=== PATIENT | female | born 1955 | race Caucasian/White ===

== ENCOUNTER 2020-05-29 10:21 | Emergency (ER) | payer OTHER ==
[~2020-05-29] VITALS: Ht 162.6 cm; Wt 48.1 kg
[~2020-05-29 10:21] MED LIST: FLAGYL500 MG PO; HYDROCODONE-AP1 EAC6 PO; IBUPROFEN 600600 M1 PO; MACROBID 100 M100 M1 PO; MAXALT MLT5 MG PO; MUCINEX600 MG; PERCOCET PO; XANAX 0.25 MG0.25 MG; ZANTAC 150MG T150 M1; ZOLOFT100 MG; ZYRTEC-D TABLE1 EAC1
[2020-05-29] MEDS ORDERED: NORCO 5-325 TA1 EAC2 PO (11:52)
[2020-05-29 12:21] VITALS: BP 186/92
== END 2020-05-29 12:24 | disposition home or self-care (01) ==
LOC: M.ERS 10:21
DX: S92.324A Nondisplaced fracture of second metatarsal bone, right foot, initial encounter for closed fracture (principal); S92.334A Nondisplaced fracture of third metatarsal bone, right foot, initial encounter for closed fracture; S92.344A Nondisplaced fracture of fourth metatarsal bone, right foot, initial encounter for closed fracture; F32.9 Major depressive disorder, single episode, unspecified; Z90.710 Acquired absence of both cervix and uterus; W22.8XXA Striking against or struck by other objects, initial encounter; Y93.89 Activity, other specified; Y92.89 Other specified places as the place of occurrence of the external cause; Y99.8 Other external cause status